=== PATIENT | male | born 1965 | race Caucasian/White ===

== ENCOUNTER 2023-04-11 10:21 | Emergency (ER) | payer BC ==
[2023-04-11 10:31] VITALS: TEMP 98.2
[2023-04-11] MEDS ORDERED: PROPARACAINE 0.5% OPHTH DROPS 15 ML BTL RIGHT EYE STA (10:53)
[2023-04-11] MEDS ORDERED: FLUORESCEIN STRIPS 1 MG STRIP RIGHT EYE ONE (10:53)
[2023-04-11] MEDS ORDERED: PROPARACAINE 0.5% OPHTH DROPS 15 ML BTL LEFT EYE STA (10:58)
[2023-04-11] MEDS ORDERED: FLUORESCEIN STRIPS 1 MG STRIP LEFT EYE ONE (10:58)
--- NOTE | 2023-04-11 12:12 | ED ---
Eye Problem HPI - General Chief complaint: Eye Problems Stated complaint: FB in left eye Time Seen by Provider: 04/11/23 10:53 Source: patient, RN notes reviewed Mode of arrival: ambulatory Limitations: no limitations - History of Present Illness Initial comments: Patient is a 57-year-old male presenting to the emergency room with complaints of a foreign body in his left eye. 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 He denies any irritation in his right eye. He denies any vision impairment. He denies any other complaints or concerns. Has has past medical history as listed below was reviewed. - Related Data Allergies Allergy/AdvReac Type Severity Reaction Status Date / Time No Known Allergies Allergy Verified 04/11/23 10:31 Review of Systems ROS Statement: Those systems with pertinent positive or pertinent negative responses have been documented in the HPI. ROS Other: All systems not noted in ROS Statement are negative. Past Medical History Past Medical History: Hyperlipidemia History of Any Multi-Drug Resistant Organisms: None Reported Past Surgical History: Appendectomy, Hernia Repair, Joint Replacement, Orthopedic Surgery Past Psychological History: No Psychological Hx Reported Smoking Status: Never smoker Past Alcohol Use History: Occasional Past Drug Use History: None Reported General Exam Limitations: no limitations General appearance: alert, in no apparent distress Head exam: Present: atraumatic, normocephalic, normal inspection Eye exam: Present: other (Small corneal abrasion at approximately 5:00). Absent: nystagmus, periorbital swelling, periorbital tenderness Expanded Eyelids: Normal Inspection: Bilateral Pupils: Regular, Round: Bilateral, Reactive: Bilateral Sclera/Conjunctival: Injection: Left (mild), Foreign Body: Left (fine metal shard s/p removal tolerated well) ENT exam: Present: normal exam, mucous membranes moist Neck exam: Present: normal inspection, full ROM Respiratory exam: Absent: respiratory distress, accessory muscle use Cardiovascular Exam: Present: regular rate Extremities exam: Present: normal inspection. Absent: pedal edema, joint swelling Back exam: Present: normal inspection Neurological exam: Present: alert, oriented X3, CN II-XII intact Psychiatric exam: Present: normal affect, normal mood Skin exam: Present: warm, dry, intact, normal color. Absent: rash Course Vital Signs 04/11/23 04/11/23 04/11/23 10:29 12:27 13:38 Temperature 98.2 F Pulse Rate 91 78 68 Respiratory 20 16 16 Rate Blood Pressure 105/67 147/88 145/86 O2 Sat by Pulse 99 98 98 Oximetry Procedures - Forgein Body Removal Eye Site: Left Anesthetic Used: Proparacaine Eye Exam Technique: Fluorescein Foreign Body Suspected: Metal Forgein Body Removal Technique: Cotton Swab Remaining Debris: No Patient Tolerated: no complications Medical Decision Making - Medical Decision Making Was pt. sent in by a medical professional or institution (, RAYMOND, [employer]CRE[employer] OPERATOR, urgent care, hospital, or halfway...) When possible be specific @ -No Did you speak to anyone other than the patient for history (EMS, parent, family, police, friend...)? What history was obtained from this source @ -No Did you review nursing and triage notes (agree or disagree)? Why? @ -I reviewed and agree with nursing and triage notes Were old charts reviewed (outside hosp., previous admission, EMS record, old EKG, old radiological studies, urgent care reports/EKG's, halfway records)? Report findings @ -No old charts were reviewed Differential Diagnosis (chest pain, altered mental status, abdominal pain women, abdominal pain men, vaginal bleeding, weakness, fever, dyspnea, syncope, headache, dizziness, GI bleed, back pain, seizure, CVA, palpatations, mental health, musculoskeletal)? @ -not applicable EKG interpreted by me (3pts min.). @ -None done X-rays interpreted by me (1pt min.). @ -None done CT interpreted by me (1pt min.). @ -None done U/S interpreted by me (1pt. min.). @ -None done What testing was considered but not performed or refused? (CT, X-rays, U/S, labs )? Why? @ -None What meds were considered but not given or refused? Why? @ -None Did you discuss the management of the patient with other professionals (professionals i.e. RAYMOND Goldstein, [employer] OPERATOR, lab, RT, psych nurse, director of social media marketing, knobber, teacher, commanding officer motorized squad, outsole caser)? Give summary @ -No Was smoking cessation discussed for >3mins.? @ -No Was critical care preformed (if so, how long)? @ -No Were there social determinants of health that impacted care today? How? (Homelessness, low income, unemployed, alcoholism, drug addiction, transportation, low edu. Level, literacy, decrease access to med. care, halfway, rehab)? @ -No Was there de-escalation of care discussed even if they declined (Discuss DNR or withdrawal of care, Hospice)? DNR status @ -No What co-morbidities impacted this encounter? (DM, HTN, Smoking, COPD, CAD, Cancer, CVA, ARF, Chemo, Hep., AIDS, mental health diagnosis, sleep apnea, morbid obesity)? @ -None Was patient admitted / discharged? Hospital course, mention meds given and route, prescriptions, significant lab abnormalities, going to OR and other pertinent info. @ - 57-year-old male presenting to the emergency room with complaints of a foreign body in his left eye. No indication for diagnostic imaging. Proparacaine and fluorescein administered to the left eye tolerated well, foreign body of swelling around metal piece identified at 5:00 and removed without complication, small corneal abrasion noted. Patient reports improvement in symptoms after proparacaine efficacy resolved. No indication for any diagnostic imaging, laboratory studies or further medication administration. Encouraged good hydration of eyes and avoidance of rubbing. Encouraged follow-up with primary care provider and/or engraver tender. Questions and concerns answered. Return parameters to the emergency room discussed. Will discharge home in stable condition status post removal foreign body to the eye with noted corneal abrasion advising follow-up with primary care provider and/or ophthalmology. Undiagnosed new problem with uncertain prognosis? @ -No Drug Therapy requiring intensive monitoring for toxicity (Heparin, Nitro, Insulin, Cardizem)? @ -No Were any procedures done? @ -Yes, foreign body of eye removed see procedures for detailed Diagnosis/symptom? @ -Foreign body left eye with corneal abrasion Acute, or Chronic, or Acute on Chronic? @ -Acute Uncomplicated (without systemic symptoms) or Complicated (systemic symptoms)? @ -Uncomplicated Side effects of treatment? @ -No Exacerbation, Progression, or Severe Exacerbation? @ -No Poses a threat to life or bodily function? How? (Chest pain, [place], [place], pneumonia, PE, COPD, DKA, ARF, appy, cholecystitis, CVA, Diverticulitis, Homicidal, Suicidal, threat to staff... and all critical care pts) @ -No Case discussed with Dr. Lim Disposition Clinical Impression: Corneal abrasion, Foreign body of cornea Disposition: HOME SELF-CARE Instructions (If sedation given, give patient instructions): Eye Lubricant (Into the eye), Corneal Abrasion (ED), Eye Foreign Body (ED) Additional Instructions: Please use refreshing eyedrops to help keep I moist. Avoid rubbing the eye. Please follow-up with your engraver tender or primary care provider. Protective eyewear encouraged while doing metal work. Please return to the Emergency Department if symptoms worsen or any other concerns. Is patient prescribed a controlled substance at d/c from ED?: No Referrals: Oniel Williamson MD [Primary Care Provider] - 1-2 days Time of Disposition: 12:31
[2023-04-11 12:28] VITALS: RESP 16
[2023-04-11 13:39] VITALS: BP 145/86; PULSE 68
== END 2023-04-11 13:39 | disposition home or self-care (01) ==
LOC: EC 10:21
DX: T15.02XA Foreign body in cornea, left eye, initial encounter (principal)
CPT/HCPCS: 99283